=== PATIENT | female | born 1955 | race Caucasian/White ===

== ENCOUNTER → 2020-12-31 | Day surgery (SDC) | payer MEDICARE ==
[~2020-12-31] VITALS: Ht 160 cm; Wt 67.0 kg
[~2020-12-31] MED LIST: CHOL5000 PO; GLYCOPYRROLATE 1 MG/5 ML VIAL. ONE; IV RINGERS,LACTATED 1000ML 1,000 ML IV SCH; LACT1CAP37 PO; LIDOCAINE 2% PF 5 ML VIAL. ONE; LISI10TA16 PO; MULT-496 PO; OMEG100021 PO; PROPOFOL 10 MG/ML (20ML) VIAL. IV ONE; ePHEDrine PF IN SALINE 50 MG/10 ML SYRINGE. IV ONE
[2020-12-31 06:18] VITALS: BP 125/77
[2020-12-31 07:54] VITALS: BP 118/73
--- NOTE | 2020-12-31 11:05 | CONS ---
DATE OF CONSULTATION: 12/31/2020 GI CONSULTATION REASON FOR CONSULTATION: Colorectal screening. HISTORY OF PRESENT ILLNESS: A 65-year-old female with past medical history significant for hypertension, status post , status post hammertoe surgery, is seen for screening colonoscopy. Bowel habits are regular without diarrhea or constipation. There has been no melena and/or hematochezia. Weight and appetite are stable. FAMILY HISTORY: Nonrevealing for cancer. She is otherwise without additional complaints. PAST MEDICAL HISTORY: Significant for hypertension, status post , status post hammertoe surgery. ALLERGIES: None. MEDICATIONS: Include probiotics, lisinopril, multivitamins, vitamin D. SOCIAL HISTORY: She is a social drinker, nonsmoker. FAMILY HISTORY: Noncontributory except for colorectal cancer with her mother. REVIEW OF SYSTEMS: HEENT: There is no decreased hearing or visual acuity issues. CARDIOVASCULAR: History of hypertension. NEUROLOGIC: No stroke, migraine, neuropathy. PSYCHIATRIC: No mood swings, depression, insomnia. HEMATOLOGIC: No bleeding, bruising coagulopathy. GASTROINTESTINAL: See history of present illness. DERMATOLOGIC: No skin rashes or pruritus. ENDOCRINE: No history of heat or cold intolerance, thyroid disease or diabetes. PHYSICAL EXAMINATION: GENERAL: Reveals a well-nourished, well-developed female who is alert, cooperative, in no acute distress. VITAL SIGNS: Temperature 97.8, pulse 92, respiratory rate 18. LUNGS: Clear. CARDIOVASCULAR: Reveals an S1, S2, without S3, S4 or appreciable murmur. ABDOMEN: Soft abdomen, normal bowel sounds, appreciable hepatosplenomegaly with infraumbilical hysterectomy incision. EXTREMITIES: Reveals no cyanosis, clubbing or edema. IMPRESSION: Colorectal screening is warranted at this time, reported family history of colon cancer. Risks and benefits were discussed. The patient understands perforation and is willing to proceed. DAKOTA/CHRIS DR: Sarika TID: [id number] CC:
--- NOTE | 2021-01-03 19:18 | PATHOLOGY ---
[facility] Accession Number: [id number] . 01 Material submitted: . colon - DESCENDING COLON POLYP. Modifiers: descending . 01 Clinical history: . SCREENING COLONOSCOPY CRC SCREEN . 02 Diagnosis: Colon biopsies, descending colon polyp: - Tubular adenoma. . ([facility]:mm; 01/03/2021) [facility] 01/03/2021 1528 Local . 02 Comment: There is no high grade dysplasia or evidence of malignancy. . ([facility]:mml; 01/03/2021) . 02 Electronically signed: . Og Hobson MD, Pathologist NPI- [id number] . 01 Gross description: . Received in formalin labeled "Peggy Sanderson, descending colon polyp" are 2 uribe-brown soft tissue fragments measuring 0.3 x 0.2 x 0.2 cm and 0.5 x 0.4 x 0.3 cm. The specimen is submitted entirely in A1. ([facility]; 01/01/2021) [facility] 01/01/2021 1050 Local . 02 Pathologist provided ICD-10: D12.4 . 02 CPT . 850744 Specimen Comment: A courtesy copy of this report has been sent to [phone], [phone] Specimen Comment: [id number] Specimen Comment: Report sent to / DR FAJARDO Performed at: 01 [facility] [address], [place] [id number] MD Eric Guerra MD Phone: [phone] Performed at: 02 [facility] [address] [place], [place] [id number] MD Og Hobson MD Phone: [phone]
== END | disposition home or self-care (01) ==
LOC: SURG 06:02
PROVIDERS: ATTEND Internal Medicine Gastroenterology
DX: Z12.11 Encounter for screening for malignant neoplasm of colon (principal); K64.0 First degree hemorrhoids; D12.4 Benign neoplasm of descending colon; K63.89 Other specified diseases of intestine; I10 Essential (primary) hypertension; M19.90 Unspecified osteoarthritis, unspecified site; Z80.0 Family history of malignant neoplasm of digestive organs; Z79.899 Other long term (current) drug therapy; Z98.890 Other specified postprocedural states
CPT/HCPCS: 45380; J2704; J3490

== ENCOUNTER 2021-05-03 14:50 | Emergency (ER) | payer MEDICARE ==
[~2021-05-03] VITALS: Ht 160 cm; Wt 67.8 kg
[~2021-05-03 14:50] MED LIST changes: -GLYCOPYRROLATE 1 MG/5 ML VIAL. ONE; -IV RINGERS,LACTATED 1000ML 1,000 ML IV SCH; -LIDOCAINE 2% PF 5 ML VIAL. ONE; -PROPOFOL 10 MG/ML (20ML) VIAL. IV ONE; -ePHEDrine PF IN SALINE 50 MG/10 ML SYRINGE. IV ONE
[2021-05-03] MEDS ORDERED: IV NORMAL SALINE 1000ML BAG 1,000 ML IV ONE (16:30)
[2021-05-03] MEDS ORDERED: ACETAMINOPHEN 500 MG TABLET PO ONE (16:30)
[2021-05-03 16:34] LABS: BILIRUBIN,URINE NEGATIVE (NEG); CLARITY,URINE CLEAR; COLOR,URINE YELLOW; NITRITE,URINE NEGATIVE (NEG); PROTEIN,URINE NEGATIVE (NEG-TRACE); UROBILINOGEN,URINE 0.2 mg/dL (0.2 mg/dL)
[2021-05-03 16:52] LABS: BACTERIA,URINE 0 /HPF (0-FEW); RBC,URINE 0 /HPF (0-2); WBC,URINE 0 /HPF (0-4)
--- NOTE | 2021-05-03 16:52 | PHYS DOC ---
General Adult EDM: Chief Complaint: MECHANICAL FALL HPI: HPI: Patient is a 65 year old female with well-controlled hypertension who presents with chief complaint of syncope that occurred 30 minutes prior to arrival. Patient states that she had severe abdominal cramping, and passed a large bowel movement without straining. She states she developed a cold sweat and lost consciousness. She did hit her face, primarily her nose, on something in the bathroom. She reports she lost consciousness for a period of seconds. She had a second syncopal episode in her 's arms in the hallway just after, which also lasted for a number of seconds. Patient reports she did have vasovagal syncope status post bowel movement in 2018. She reports this episode was almost identical. She does report some nose bleeding that resolved upon arrival to the emergency department. She states her mother also had vasovagal syncopal episodes. She denies dizziness, weakness, chest pain, palpitations, shortness of breath, cough and any other trauma or injury. Patient has no other complaints at this time. Review of Systems: Review of Systems: Constitutional: Denies fever or chills. Eyes: Denies change in visual acuity. HENT: See HPI Respiratory: See HPI Cardiovascular: See HPI GI: See HPI : Denies dysuria or hematuria Musculoskeletal: Denies back pain or joint pain. Integument: Denies rash and diaphoresis Neurologic: See HPI Heart Score: C/O Chest Pain: No Current Medications: Current Medications Medications (Trade) Dose Ordered Sig/Edilberto Start Time Stop Time Status Last Admin Dose Admin Acetaminophen (Tylenol) 1,000 mg 1X ONCE 05/03/21 16:30 05/03/21 16:31 DC Sodium Chloride 1,000 ml @ 1,000 mls/hr 1X ONCE 05/03/21 16:30 05/03/21 17:29 Allergies: Allergies: Allergies Coded Allergies Type Severity Reaction Last Updated Verified No Known Drug Allergies 12/31/20 No Physical Exam: PE: Constitutional: Well developed, well nourished, no acute distress, non-toxic appearance. HENT: Normocephalic, swelling and abrasion noted to bridge of nose, nasal airways patent bilaterally, bilateral external ears normal, oropharynx moist, no oral exudates, nose normal with minimal amount of dried blood noted in bilateral nares. Eyes: PERRLA, EOMI, conjunctiva normal, no discharge. Neck: Normal range of motion, no step-off, no bony tenderness, no paraspinal tenderness, no stridor. Cardiovascular: Heart rate regular rhythm, no murmur. Lungs & Thorax: Bilateral breath sounds clear to auscultation. Abdomen: Bowel sounds normal, soft, no tenderness, no masses, no pulsatile masses. Skin: Warm, dry, no erythema, no rash. Back: No step-offs, no bony tenderness, no paraspinal tenderness. Extremities: No tenderness, no cyanosis, no clubbing, ROM intact, no edema. Neurologic: Alert and oriented x3, normal motor function, normal sensory function, no focal deficits noted. EKG: EKG: EKG Interpreted by Dr. Romero: Regular rate and rhythm 71 bpm with no ectopic beats. No concerning ST-T wave changes. QT 382 ms/QTc 415 ms. Radiology/Procedures: Radiology/Procedures: PROCEDURE: CT HEAD AND MAXILLOFACIAL WO CT head without contrast. Maxillofacial CT without contrast PQRS statement: CT scans at this facility use dose reduction including either automated exposure control, iterative reconstructions, and /or weight based radiation dosing via mA and kV modification when appropriate to reduce radiation dose to as low as reasonably achievable. HISTORY: Syncope with trauma. CT head findings: No intracranial hemorrhage, mass, hydrocephalus, extra-axial fluid collections or infarction. Calcified plaque intracranial arteries. Orbits, mastoids and bones are unremarkable. IMPRESSION: No acute abnormality. Maxillofacial CT findings: Acute traumatic bilateral mildly buckled nasal bone fractures are mildly buckled inward towards the anterior nasal passages. Remaining facial bones intact. The maxilla, mandible and bony orbits are intact. Mild mucosal thickening ethmoid sinuses. Mild nasal soft tissue swelling. No orbital edema or hematoma. IMPRESSION: Nasal bone fractures. Electronically signed by: Ag Raymond MD (05/03/2021 4:59 PM) [facility] Course & Med Decision Making: Course & Med Decision Making Pertinent Labs and Imaging studies reviewed. (See chart for details) Patient presentation and history consistent with vasovagal syncope. Syncopal work-up includes EKG, CT head and face as well as blood draws. Patient will also be provided with normal saline bolus. While she denies headache at this time, Tylenol ordered as needed. Patient is slightly anemic with a hemoglobin of 11.9, which patient states is normal for her. Blood chemistry consistent with mild dehydration. CT did not reveal any acute intracranial abnormalities, but patient does have a nasal bone fracture without hematoma or obstruction. Patient will be provided with ENT follow-up should she have recurrent epistaxis or is displeased with the cosmetic appearance of her healed fracture. Otherwise, she can follow-up with her primary care provider regarding syncopal episode and slight anemia, as well as nose break. Patient understands and is agreeable to discharge plan. Dragon Disclaimer: Dragon Disclaimer: This electronic medical record was generated, in whole or in part, using a voice recognition dictation system. Departure Departure Impression: Primary Impression: Vasovagal syncope Additional Impressions: Nasal bone fracture Qualified Codes: S02.2XXA - Fracture of nasal bones, initial encounter for closed fracture Anemia Qualified Codes: D64.9 - Anemia, unspecified Disposition: HOME / SELF CARE / HOMELESS Condition: STABLE Referrals: EMILY FAJARDO MD (PCP) KATHRYN CRENSHAW MD Patient Instructions: Nasal Fracture, [id number], Syncope, [id number] Additional Instructions: As discussed, you should follow-up with your primary care physician. It is always advisable to see your family doctor after syncopal episode, but they will also be able to monitor your nasal bone fracture healing. You were also provided with contact information for an ENT doctor. Over the next few weeks, if you experience recurrent nosebleeds or you are unhappy with the cosmetic appearance of your healed nose, you may schedule an appointment with them for further evaluation and management. Please return to the emergency department if you have a return of symptoms, worsening pain, or if you experience another syncopal episode. CHERYL BUNDY May 03, 2021 16:52
--- NOTE | 2021-05-03 17:01 | RAD ---
CT head without contrast. Maxillofacial CT without contrast PQRS statement: CT scans at this facility use dose reduction including either automated exposure cont rol, iterative reconstructions, and /or weight based radiation dosing via mA and kV modification when appropriate to reduce radiation dose to as low as reasonably achievable. HISTORY: Syncope with trauma. CT head findings: No intracranial hemorrhage, mass, hydrocephalus, extra-axial fluid collections or i nfarction. Calcified plaque intracranial arteries. Orbits, mastoids and bones are unremarkable. IMPRESSION: No acute abnormality. Maxillofacial CT findings: Acute traumatic bilateral mildly buckled nasal bone fractures are mildly b uckled inward towards the anterior nasal passages. Remaining facial bones intact. The maxilla, mandib le and bony orbits are intact. Mild mucosal thickening ethmoid sinuses. Mild nasal soft tissue swelli ng. No orbital edema or hematoma. IMPRESSION: Nasal bone fractures. Electronically signed by: Ag Raymond MD (05/03/2021 4:59 PM) [facility]
[2021-05-03 17:20] LABS: BASO % 0 % (0-3); EOS # 0.1 x10^3/uL (0.0-0.7); EOS % 1 % (0-3); HEMATOCRIT 34.4 % (36.0-47.0); HEMOGLOBIN 11.9 g/dL (12.0-15.5); LYMPH # 0.8 x10^3/uL (1.0-4.8); LYMPH % 10 % (24-48); MEAN CORPUSCULAR HEMOGLOBIN 32 pg (25-35); MEAN CORPUSCULAR HGB CONC 35 g/dL (31-37); MEAN CORPUSCULAR VOLUME 92 fL (79-100); MONO # 0.4 x10^3/uL (0.0-1.1); MONO % 6 % (0-9); NEUT # 6.7 x10^3/uL (1.8-7.7); NEUT % 83 % (31-73); PLATELET COUNT 268 x10^3/uL (140-400); RED BLOOD COUNT 3.73 x10^6/uL (3.50-5.40); RED CELL DISTRIBUTION WIDTH 13.2 % (11.5-14.5); WHITE BLOOD COUNT 8.1 x10^3/uL (4.0-11.0)
[2021-05-03 17:35] LABS: CALCIUM 9.6 mg/dL (8.5-10.1); CREATININE 1.1 mg/dL (0.6-1.0); GFR 49.5; POTASSIUM 4.2 mmol/L (3.5-5.1)
[2021-05-03 17:41] LABS: ALBUMIN/GLOBULIN RATIO 1.3 (1.0-1.7); TOTAL BILIRUBIN 0.4 mg/dL (0.2-1.0); TOTAL PROTEIN 7.1 g/dL (6.4-8.2)
--- NOTE | 2021-05-03 18:27 | EKG ---
[facility] [address] [place] [address] Test Date: 2021-05-03 Test Time: 16:33:39 Pat Name: DAYANA CRANE Department: Room: Gender: F Equipment Superintendent: : [id number] Requested By: CHERYL BUNDY Order Number: [id number] Reading MD: Killian Bone MD Measurements Intervals [place] Rate: 71 P: 60 MD: 176 QRS: 24 QRSD: 98 T: 26 QT: 382 QTc: 415 Interpretive Statements SINUS RHYTHM NON-SPECIFIC ST/T CHANGES Electronically Signed On 05-04-2021 17:31:55 CDT by Killian Bone MD
[2021-05-03 18:45] VITALS: BP 123/62
== END 2021-05-03 18:55 | disposition home or self-care (01) ==
LOC: ER 14:50
DX: S02.2XXA Fracture of nasal bones, initial encounter for closed fracture (principal); D64.9 Anemia, unspecified; R55 Syncope and collapse; R10.9 Unspecified abdominal pain; X58.XXXA Exposure to other specified factors, initial encounter; Y93.89 Activity, other specified; Y92.89 Other specified places as the place of occurrence of the external cause; Y99.8 Other external cause status
CPT/HCPCS: 36415; 70450; 70486; 80053; 81001; 85025; 93005; 96360; 96361; 99285; J7030